=== PATIENT | male | born 1945 | race Caucasian/White ===

== ENCOUNTER 2018-05-04 06:15 | Day surgery (SDC) | payer MEDICARE, OTHER ==
[2018-05-03 10:04] LABS: HEMOGLOBIN 15.4 g/dL (13.5-17.5); MCH 30.9 pg (26.0-34.0); MCHC 34.2 g/dL (31.0-37.0); MCV 90.2 fL (80.0-100.0); MEAN PLATELET VOLUME 9.5 fL (7.4-10.4); RBC 4.99 10x6/uL (4.20-6.10); RDW 13.1 % (11.5-14.5); WBC 7.3 10x3/uL (4.8-10.8)
[2018-05-03 10:18] LABS: ANION GAP 13.3 mmol/L (8-16); CARBON DIOXIDE 28.2 mmol/L (21.0-32.0); CREATININE - SERUM 1.4 mg/dL (0.6-1.3); POTASSIUM - SERUM 4.5 mmol/L (3.5-5.1)
[~2018-05-04] VITALS: Ht 182.9 cm; Wt 107.0 kg
--- NOTE | ~2018-05-04 | OP ---
PATIENT NAME: MARGARITA BROWNLEE MEDICAL RECORD: [id number] :47 LOCATION:D.OPS ADMISSION DATE: SURGEON: MARGARITA STOKES MD DATE OF OPERATION: 05/04/2018 PREOPERATIVE DIAGNOSIS: Bilateral ring finger trigger finger. POSTOPERATIVE DIAGNOSIS: Bilateral ring finger trigger finger. PROCEDURES: 1. A1 lauren release, trigger finger release, right ring finger. 2. A1 lauren release, left ring finger. SURGEON: Margarita Stokes MD ANESTHESIA: General. INTRAOPERATIVE COMPLICATIONS: None. SUMMARY OF PATHOLOGIC FINDINGS: The patient had very tight A1 pulleys on both sides. Attritional changes worse on the right than on the left; however, no full-thickness tearing was noted. OPERATIVE SUMMARY IN DETAIL: After obtaining the appropriate preoperative orthopedic surgery consent as well as anesthetic consultation, evaluation and clearance, the patient was brought to the operating room and placed on the operating table in supine position. After general laryngeal mask airway was administered, tourniquet was placed about the proximal aspect of the right upper extremity. The other tourniquet was placed on the left upper extremity because of the IV. Bilateral upper extremities were prepped and draped in routine sterile fashion. The left was approached first. An Esmarch bandage was used as a tourniquet. The arm was elevated, exsanguinated, and the Esmarch bandage was left in place and clipped with a hemostat. Incision made just proximal to the base of the left index finger and taken down over the A1 lauren and under direct visualization with protection of the digital nerves. The A1 lauren was released in its entirety. The wound was then irrigated and closed with 4-0 Prolene in routine interrupted fashion. The area was locally infiltrated with 0.5% plain lidocaine. Having completed this, this was covered. The Esmarch bandage was taken down. Attention was then turned to the right upper extremity. Right upper extremity was elevated and exsanguinated, tourniquet was inflated to 250 mmHg. An incision was again made at the base of the right index finger. It was taken directly down to the A1 lauren, which was incised in line with the tendon to reveal some mild tearing of the tendon; however, it was only superficial not attritional. Wound was then irrigated and closed with 4-0 Prolene in a routine interrupted fashion. The area was locally infiltrated with 0.5% Marcaine plain. Sterile dressings were applied. Tourniquet was deflated. The patient was awakened and taken to the recovery room in stable condition. All final needle and sponge counts were correct. OPERATIVE REPORT [id number] MARGARITA BROWNLEE TRANSINT:[id number] Voice Confirmation ID: [id number] DOCUMENT ID: [id number] KIKE RAHMAN, MARGARITA GLASS at 0939 CC: [id number] DICTATION DATE: 05/04/1845 MACHINE CLEANER: 05/04/18 0934 [place] [id number] [place] [id number]
[~2018-05-04 06:15] MED LIST: CRESTOR5 MG PO; FLOMAX0.4 MG PO; GLUCOPHAGE850 MG PO; LIPITOR10 MG PO; LOTENSIN20 MG PO; MIRALAX17 GM PO; NAPROSYN500 MG PO; NIASPAN500 MG PO; PROSCAR5 MG PO; ZYLOPRIM300 MG PO
[2018-05-04 06:53] VITALS: BP 151/81; Ht 182.9 cm; Wt 107.0 kg
[2018-05-04] MEDS ORDERED: HYDROCODONE-APA1 TAB PO (08:43)
== END 2018-05-04 10:30 | disposition home or self-care (01) ==
LOC: D.OPS 06:15 → D.PAN 08:30 → D.OPS 10:00 → D.PAN 10:00 → D.OPS 10:30 → D.PAN 13:45
PROVIDERS: Anesthesiology
DX: M65.342 Trigger finger, left ring finger (principal); M65.341 Trigger finger, right ring finger; Z01.812 Encounter for preprocedural laboratory examination

== ENCOUNTER → 2019-04-13 06:53 | Outpatient (CLI) | payer MEDICARE, OTHER ==
[2018-05-04 06:53] VITALS: BMI 32.1
[~2019-04-13 06:53] MED LIST changes: +HYDROCODONE-APA1 TAB PO
== END | disposition home or self-care (01) ==
LOC: D.US 06:53
PROVIDERS: ATTEND Nurse Practitioner Family
DX: N28.1 Cyst of kidney, acquired (principal); I10 Essential (primary) hypertension; E11.9 Type 2 diabetes mellitus without complications; N40.0 Benign prostatic hyperplasia without lower urinary tract symptoms; Z68.33 Body mass index [BMI] 33.0-33.9, adult

== ENCOUNTER 2020-10-23 08:19 | Day surgery (SDC) | payer MEDICARE, OTHER ==
[~2020-10-23] VITALS: Ht 182.9 cm; Wt 107.3 kg
[~2020-10-23 08:19] MED LIST changes: +METAMUCIL PACKE1 PKT PO
[2020-10-23 08:39] LABS: BASOPHILS 0.2 % (0-2); EOSINOPHILS 2.9 % (0-7); HEMATOCRIT 43.5 % (42.0-54.0); HEMOGLOBIN 14.5 g/dL (13.5-17.5); LYMPHOCYTE ABS# 1.77 10x3/uL (1.32-3.57); LYMPHOCYTES 27.1 % (15-50); MCH 30.5 pg (26.0-34.0); MCHC 33.3 g/dL (31.0-37.0); MCV 91.4 fL (80.0-100.0); MEAN PLATELET VOLUME 8.8 fL (7.4-10.4); MONOCYTES 8.9 % (2-11); NEUTROPHIL ABS# 3.98 10x3/uL (1.78-5.38); NEUTROPHILS 60.9 % (40-80); PLATELET COUNT 213 10x3/uL (130-400); RBC 4.76 10x6/uL (4.20-6.10); RDW 13.3 % (11.5-14.5); WBC 6.5 10x3/uL (4.8-10.8)
[2020-10-23 08:49] LABS: ANION GAP 13.4 mmol/L (8-16); CALCIUM 9.4 mg/dL (8.5-10.1); CARBON DIOXIDE 24.6 mmol/L (21.0-32.0); CREATININE - SERUM 1.3 mg/dL (0.6-1.3)
[2020-10-23 09:13] VITALS: BP 129/74; Ht 182.9 cm; Wt 107.3 kg
--- NOTE | 2020-10-23 20:44 | NUR ---
2039 GIVEN RX TO FILL. 2044 PT SCANNED AND 668ML ASSISTED UP TO VOID BUT UNABLE. NO URGENCY. MEDICATED WITH PO VALIUM 5MG
--- NOTE | 2020-10-23 20:45 | NUR ---
2044 DR ANDERSON CALLED AND NOTIFIED THAT PT IS TRYING TO VOID BUT UNABLE
--- NOTE | 2020-10-23 21:30 | NUR ---
2130 PT RESCANNED AND 722ML INCREASE FROM PRIOR SCAN. ASSISTED UP TO BATHROOM WITH WATER ON. PAIN BETTER AND GETTING RX FILLED. WILL CATH SHORTLY IF UNABLE TO URINATE. PT INSTRUCTED TO RETURN TO OFFICE TUESDAY TO HAVE CATHETER REMOVED IF HE IS UNABLE TO VOID SHORLY
--- NOTE | 2020-10-23 22:21 | NUR ---
2140 AT BEDSIDE AND PT IN BATHROOM UNABLE TO VOID. ASSISTED BACK TO BED AND INSERTED 16F BARRERA CATHETER USING EMERGENCY GENERATOR MECHANIC. RECIEVED 700ML OF URINE. INSTRUCTIONS GIVEN TO AND HOW TO CARE FOR CATHETER. GLOVES AND URINAL GIVEN AND SITZ BATH AND REQUESTED FOR PT TO CALL OFFICE TO SEE IF PT CAN USE SITZ BATH AND APT FOR FOLLOW UP. TO KEEP CATH BELOW BLADDER.IV REMOVED AND ASSISTED WITH GETTING DRESSED PAIN RELIEVED AND DISCHARGED HOME
--- NOTE | 2020-11-14 12:12 | OP ---
PATIENT NAME: MARGARITA BROWNLEE MEDICAL RECORD: [id number] :47 LOCATION:D.OPS ADMISSION DATE: SURGEON: CHAD ANDERSON MD DATE OF OPERATION: 10/23/2020 PREOPERATIVE DIAGNOSES: 1. Internal hemorrhoidal bleeding. 2. Intractable symptomatic external hemorrhoids. 3. Third-degree internal hemorrhoidal prolapse. POSTOPERATIVE DIAGNOSES: 1. Internal hemorrhoidal bleeding. 2. Intractable symptomatic external hemorrhoids. 3. Third-degree internal hemorrhoidal prolapse. PROCEDURE: Procedure for prolapse and hemorrhoids. SURGEON: Chad Anderson. PLASTIC SURGERY COORDINATOR: None. BLOOD LOSS: Minimal. ANESTHESIA: General. The risks, possible complications, and alternatives to the procedure were explained to the patient. He elects to proceed. The discussion specifically included, but was not limited to bleeding requiring emergency reoperation, infection and recurrent hemorrhoidal symptoms. The patient was conveyed to the operating room electively on 10/23/2020. General anesthesia was induced by the anesthesia staff. The patient was placed in the lithotomy position. The buttocks were taped laterally. The anus and perineum were sterilely prepped and draped. The PPH dilator retractor was placed. The retractor was sutured to the surrounding anoderm with 2-0 silks. A mucosal pursestring suture of 2-0 Prolene was applied 1 cm cephalad to the clear retractor. The pursestring suture was then tightened and tied. The stapling device was engaged. It was held in place for 3 minutes and then fired. The stapling device was removed. The resulting donut in the stapling device revealed mucosal tissue as well as hemorrhoidal tissue. Bleeding along the anastomotic staple line was controlled with [id number] 3-0 Vicryl. Gelfoam was applied within the anus and lower rectum. A combination of a steroid preparation and Marcaine were used to infiltrate the perianal tissues. An anesthetic ointment was applied to the external hemorrhoids. The patient was then extubated and conveyed to post-anesthesia care unit. He will be dismissed home on Colace as well as a narcotic analgesic and Valium. TRANSINT:[id number] Voice Confirmation ID: [id number] DOCUMENT ID: [id number] OPERATIVE REPORT [id number] MARGARITA BROWNLEE ROBERT MD at 1212 CC: [id number] DICTATION DATE: 11/13/20 1650 GARMENT PARTS CUTTER MACHINE: 11/13/202100 [facility] 10/23/20 [facility] [address] [place] [address]
== END 2020-10-23 10:20 | disposition home or self-care (01) ==
LOC: D.OPS 08:19
PROVIDERS: ATTEND Surgery
DX: K64.8 Other hemorrhoids (principal); K64.4 Residual hemorrhoidal skin tags; K64.2 Third degree hemorrhoids